=== PATIENT | female | born 1945 ===

== ENCOUNTER 2024-03-14 08:04 | Outpatient (CLI) | payer OTHER ==
[~2024-03-14 08:04] MED LIST: AMOX-CLAV 875-1 EACH PO; ASA81 MG; DICLOFENAC SODI50 MG PO; DOLOGESIC 500-1 EACH PO; GEMFIBROZIL600 MG PO; INTESTINEX680 M1 PO; LOPRESSOR25 MG; NORVASC5 MG; ZANAFLEX2 MG PO; ZANTAC150 M3 PO
[2024-03-14 08:56] LABS: URINE APPEARANCE Clear; URINE BILIRRUBIN Negative (NEGATIVE); URINE BLOOD Negative; URINE COLOR Yellow; URINE GLUCOSE Negative (NEGATIVE); URINE LEUKOCYTE Negative; URINE NITRATE Negative; URINE PROTEIN Negative (NEGATIVE); URINE UROBILINOGEN 0.2 E.U./dl
[2024-03-14 08:57] LABS: URINE BACTERIA 31.4 uL (0.0-1933); URINE EPITHELIAL CELLS 9.5 uL (0.0-38.8); URINE RBC 4.5 uL (0.0-20.8)
[2024-03-14 08:58] LABS: URINE WBC 1.5 uL (0.0-23.2)
[2024-03-14 09:10] LABS: HEMATOCRIT 43.7 % (36.0-45.00); HEMOGLOBIN 14.6 g/dL (12.0-15.00); MEAN CELL VOLUME 89.7 fL (80.00-100.00); MEAN CORPUSCULAR HEMOGLOBIN 30.1 pg (27.00-32.0); MEAN CORPUSCULAR HGB CONC 33.5 g/dl (32.0-36.0); PLATELET COUNT 286 K/uL (150-450); RED BLOOD COUNT 4.87 M/uL (4.00-6.00); RED CELL DISTRIBUTION WIDTH 14.2 % (11.5-14.5)
[2024-03-14 09:43] LABS: ALBUMIN 3.8 gm/dL (3.4-5.0); BILIRUBIN TOTAL 0.87 mg/dL (0.3-1.2); CALCIUM 9.1 mg/dL (8.5-10.1); CHOL HDL RATIO 3.6 (0-5.0); CREATININE SERUM 0.64 mg/dL (0.55-1.02); GFR 89.74; GLOBULINA 3.4 G/DL (2.4-3.5); POTASSIUM 3.33 mEq/L (3.5-5.1); T4 TOTAL 9.24 UG/DL (4.8-13.9); TOTAL PROTEIN 7.2 gm/dL (6.4-8.2); TSH 2.33 uIU/mL (0.358-3.74)
[2024-03-17 17:09] LABS: APOLIPOPROTEINA A1 189 mg/dL (116-209); APOLIPOPROTEINA B 116 mg/dL (<90)
== END 2024-03-14 08:06 | disposition home or self-care (01) ==
LOC: LAB 08:04
PROVIDERS: ATTEND Internal Medicine Cardiovascular Disease
DX: E78.2 Mixed hyperlipidemia (principal); E03.9 Hypothyroidism, unspecified; E11.9 Type 2 diabetes mellitus without complications; I10 Essential (primary) hypertension; N39.0 Urinary tract infection, site not specified

== ENCOUNTER 2024-03-28 08:15 | Outpatient (CLI) | payer OTHER | END 2024-03-28 08:23 | disposition home or self-care (01) | LOC: RAD 08:15 | PROVIDERS: ATTEND Physical Medicine & Rehabilitation | DX: M54.51 Vertebrogenic low back pain (principal); M76.01 Gluteal tendinitis, right hip; M76.02 Gluteal tendinitis, left hip ==

== ENCOUNTER → 2024-04-04 09:11 | Outpatient (CLI) | payer OTHER | END | disposition home or self-care (01) | LOC: NUCLEAR 09:00 | PROVIDERS: ATTEND Internal Medicine Cardiovascular Disease | DX: I73.9 Peripheral vascular disease, unspecified (principal) ==

== ENCOUNTER → 2024-04-05 09:25 | Outpatient (CLI) | payer OTHER | END | disposition home or self-care (01) | LOC: NUCLEAR 04-03 09:00 | PROVIDERS: ATTEND Internal Medicine Cardiovascular Disease | DX: I73.9 Peripheral vascular disease, unspecified (principal); I87.2 Venous insufficiency (chronic) (peripheral) ==

== ENCOUNTER → 2024-04-12 15:19 | Outpatient (CLI) | payer OTHER ==
[2024-04-12 16:22] LABS: HEMATOCRIT 43.1 % (36.0-45.00); HEMOGLOBIN 14.6 g/dL (12.0-15.00); MEAN CELL VOLUME 90.1 fL (80.00-100.00); MEAN CORPUSCULAR HEMOGLOBIN 30.5 pg (27.00-32.0); MEAN CORPUSCULAR HGB CONC 33.9 g/dl (32.0-36.0); PLATELET COUNT 284 K/uL (150-450); RED BLOOD COUNT 4.79 M/uL (4.00-6.00); RED CELL DISTRIBUTION WIDTH 14.2 % (11.5-14.5)
[2024-04-12 16:27] LABS: URINE APPEARANCE Turbid; URINE BILIRRUBIN Small (NEGATIVE); URINE BLOOD Large; URINE COLOR Orange; URINE GLUCOSE Negative (NEGATIVE); URINE KETONE Negative (NEGATIVE); URINE LEUKOCYTE Large; URINE NITRATE Positive
[2024-04-12 16:28] LABS: URINE BACTERIA 3270.7 uL (0.0-1933); URINE EPITHELIAL CELLS 17.3 uL (0.0-38.8); URINE RBC 240.9 uL (0.0-20.8); URINE WBC 4097.7 uL (0.0-23.2)
[2024-04-12 16:38] LABS: URINE PROTEIN 100 (NEGATIVE)
== END | disposition home or self-care (01) ==
LOC: LAB 15:19
PROVIDERS: ATTEND Obstetrics & Gynecology
DX: N39.0 Urinary tract infection, site not specified (principal)

== ENCOUNTER → 2024-04-18 10:20 | Outpatient (CLI) | payer OTHER | END | disposition home or self-care (01) | LOC: NUCLEAR 10:20 | PROVIDERS: ATTEND Obstetrics & Gynecology | DX: M81.0 Age-related osteoporosis without current pathological fracture (principal) ==

== ENCOUNTER 2024-04-18 13:48 | Outpatient (CLI) | payer OTHER | END 2024-04-18 13:49 | disposition home or self-care (01) | LOC: MAMO-SONO 13:48 | PROVIDERS: ATTEND Obstetrics & Gynecology | DX: N60.11 Diffuse cystic mastopathy of right breast (principal); N60.12 Diffuse cystic mastopathy of left breast; Z12.31 Encounter for screening mammogram for malignant neoplasm of breast ==

== ENCOUNTER → 2024-09-27 09:45 | Outpatient (CLI) | payer OTHER | END | disposition home or self-care (01) | LOC: NUCLEAR 09:45 | PROVIDERS: ATTEND Internal Medicine Cardiovascular Disease | DX: I73.9 Peripheral vascular disease, unspecified (principal) ==

== ENCOUNTER → 2024-10-11 07:44 | Outpatient (CLI) | payer OTHER ==
[2024-10-11 08:40] LABS: HEMATOCRIT 45.6 % (36.0-45.00); HEMOGLOBIN 15.4 g/dL (12.0-15.00); MEAN CELL VOLUME 90.2 fL (80.00-100.00); MEAN CORPUSCULAR HEMOGLOBIN 30.5 pg (27.00-32.0); MEAN CORPUSCULAR HGB CONC 33.9 g/dl (32.0-36.0); PLATELET COUNT 262 K/uL (150-450); RED BLOOD COUNT 5.06 M/uL (4.00-6.00); RED CELL DISTRIBUTION WIDTH 14.9 % (11.5-14.5)
[2024-10-11 09:06] LABS: URINE APPEARANCE Cloudy; URINE BILIRRUBIN Negative (NEGATIVE); URINE BLOOD Negative; URINE COLOR Yellow; URINE GLUCOSE Negative (NEGATIVE); URINE KETONE Negative (NEGATIVE); URINE LEUKOCYTE Small; URINE NITRATE Negative; URINE PROTEIN Negative (NEGATIVE); URINE UROBILINOGEN 0.2 E.U./dl
[2024-10-11 09:07] LABS: URINE EPITHELIAL CELLS 16.4 uL (0.0-38.8); URINE RBC 2.2 uL (0.0-20.8); URINE WBC 90.8 uL (0.0-23.2)
[2024-10-11 09:10] LABS: URINE BACTERIA > 9821.5 uL (0.0-1933)
[2024-10-11 09:53] LABS: ALBUMIN 3.7 gm/dL (3.4-5.0); BILIRUBIN TOTAL 0.96 mg/dL (0.3-1.2); CALCIUM 8.9 mg/dL (8.5-10.1); CHOL HDL RATIO 3.5 (0-5.0); CREATININE SERUM 0.67 mg/dL (0.55-1.02); GFR 84.9; GLOBULINA 3.2 G/DL (2.4-3.5); POTASSIUM 4.65 mEq/L (3.5-5.1); T4 TOTAL 8.6 UG/DL (4.8-13.9); TOTAL PROTEIN 6.9 gm/dL (6.4-8.2); TSH 1.9 uIU/mL (0.358-3.74)
[2024-10-11 10:12] LABS: T3 TOTAL 0.832 ng/ml (0.846-2.02); VITAMIN D3 25 HYDROXY 46.13 ng/ml (30-120)
[2024-10-11 13:19] LABS: ob POSITIVE (NEGATIVE)
== END | disposition home or self-care (01) ==
LOC: LAB 07:44
PROVIDERS: ATTEND Internal Medicine Cardiovascular Disease
DX: E11.9 Type 2 diabetes mellitus without complications (principal); E03.9 Hypothyroidism, unspecified; E78.2 Mixed hyperlipidemia; I10 Essential (primary) hypertension; D64.0 Hereditary sideroblastic anemia; Z12.11 Encounter for screening for malignant neoplasm of colon; E55.9 Vitamin D deficiency, unspecified; M81.0 Age-related osteoporosis without current pathological fracture; N39.0 Urinary tract infection, site not specified

== ENCOUNTER 2025-02-13 07:39 | Outpatient (CLI) | payer OTHER ==
[2025-02-13 08:17] LABS: EOS # 0.24 (0.04-0.54); HEMATOCRIT 43.6 % (34.1-44.9); HEMOGLOBIN 14.5 g/dL (11.2-15.7); LYMPH # 1.83 (1.18-3.74); LYMPH % 30.5 % (19.3-53.1); MEAN CORPUSCULAR HEMOGLOBIN 29.6 pg (25.6-32.2); MONO # 0.42 (0.24-0.82); NEUT # 3.44 (1.56-6.13); NEUT % 57.3 % (34.0-71.1); PLATELET COUNT 339 K/uL (163-369); RED CELL DISTRIBUTION WIDTH 13.9 % (11.6-14.4)
[2025-02-13 08:29] LABS: PH,URINE 7.5 (5.0-8.0); URINE APPEARANCE Clear; URINE BILIRRUBIN Negative (NEGATIVE); URINE BLOOD Negative; URINE COLOR Yellow; URINE GLUCOSE Negative (NEGATIVE); URINE KETONE Negative (NEGATIVE); URINE LEUKOCYTE Moderate; URINE NITRATE Negative; URINE PROTEIN Negative (NEGATIVE); URINE UROBILINOGEN 0.2 E.U./dl
[2025-02-13 08:30] LABS: URINE BACTERIA 80.7 uL (0.0-1933); URINE EPITHELIAL CELLS 15.1 uL (0.0-38.8); URINE RBC 4.7 uL (0.0-20.8); URINE WBC 21.4 uL (0.0-23.2)
[2025-02-13 08:56] LABS: URINE CAST 0.14 uL (0.0-1.40)
[2025-02-13 09:27] LABS: ALBUMIN 3.7 gm/dL (3.4-5.0); BILIRUBIN TOTAL 0.86 mg/dL (0.3-1.2); CALCIUM 9.2 mg/dL (8.5-10.1); CREATININE SERUM 0.66 mg/dL (0.55-1.02); GFR 86.39; GLOBULINA 3.2 G/DL (2.4-3.5); POTASSIUM 4.08 mEq/L (3.5-5.1); T4 TOTAL 7.48 UG/DL (4.8-13.9); TOTAL PROTEIN 6.9 gm/dL (6.4-8.2); TSH 1.83 uIU/mL (0.358-3.74)
[2025-02-13 09:28] LABS: CHOL HDL RATIO 4.3 (0-5.0)
== END 2025-02-13 07:46 | disposition home or self-care (01) ==
LOC: LAB 07:39
PROVIDERS: ATTEND Internal Medicine Cardiovascular Disease
DX: I10 Essential (primary) hypertension (principal); E11.9 Type 2 diabetes mellitus without complications; E03.9 Hypothyroidism, unspecified; E78.2 Mixed hyperlipidemia; N39.0 Urinary tract infection, site not specified

== ENCOUNTER 2025-04-28 08:35 | Outpatient (CLI) | payer OTHER ==
[~2025-04-28 08:35] MED LIST changes: +NORFLEX100MG PO
== END 2025-04-28 08:44 | disposition home or self-care (01) ==
LOC: MAMO-SONO 08:35
PROVIDERS: ATTEND Obstetrics & Gynecology
DX: N60.11 Diffuse cystic mastopathy of right breast (principal); N60.12 Diffuse cystic mastopathy of left breast; Z12.31 Encounter for screening mammogram for malignant neoplasm of breast

== ENCOUNTER → 2025-05-03 09:05 | Outpatient (CLI) | payer OTHER ==
[2025-05-03 09:41] LABS: BASO % 0.8 % (0.1-1.2); EOS # 0.17 (0.04-0.54); EOS % 3.5 % (0.7-7.0); LYMPH # 1.49 (1.18-3.74); LYMPH % 30.3 % (19.3-53.1); MEAN PLATELET VOLUME 10.50 fl (9.4-12.4); MONO # 0.34 (0.24-0.82); MONO % 6.9 % (4.7-12.5); NEUT # 2.87 (1.56-6.13); NEUT % 58.3 % (34.0-71.1); RED CELL DISTRIBUTION WIDTH 13.5 % (11.6-14.4)
[2025-05-03 10:22] LABS: ALT/SGPT 23.0 U/L (12-78); AST/SGOT 18.0 U/L (15-37); BILIRUBIN TOTAL 0.89 mg/dL (0.3-1.2); BUN CREA RATIO 28.0 (7.0-25.0); CHOL HDL RATIO 3.1 (0-5.0); CREATININE SERUM 0.69 mg/dL (0.55-1.02); GFR 82.07; GLOBULINA 3.2 G/DL (2.4-3.5); GLUCOSE FASTING 112.0 mg/dL (65-100); HDL 70.0 mg/dl (40-60); LDL 123.0 mg/dl (0-130); OSMOLALITY SERUM 288.0 MOSM/KG (275-295); T4 TOTAL 8.68 UG/DL (4.8-13.9); TSH 1.33 uIU/mL (0.358-3.74); VLDL 25.0 (0-39)
[2025-05-03 11:12] LABS: URINE APPEARANCE Clear; URINE BILIRRUBIN Negative (NEGATIVE); URINE BLOOD Negative; URINE COLOR Yellow; URINE GLUCOSE Negative (NEGATIVE); URINE KETONE Negative (NEGATIVE); URINE LEUKOCYTE Small; URINE NITRATE Negative; URINE PROTEIN Negative (NEGATIVE); URINE UROBILINOGEN 0.2 E.U./dl
[2025-05-03 11:16] LABS: URINE BACTERIA 64.7 uL (0.0-1933); URINE EPITHELIAL CELLS 32.2 uL (0.0-38.8); URINE RBC 2.0 uL (0.0-20.8); URINE WBC 15.6 uL (0.0-23.2)
[2025-05-03 11:21] LABS: URINE CAST 0.00 uL (0.0-1.40)
== END | disposition home or self-care (01) ==
LOC: LAB 09:05
PROVIDERS: ATTEND Internal Medicine Cardiovascular Disease
DX: E03.9 Hypothyroidism, unspecified (principal); E78.2 Mixed hyperlipidemia; I10 Essential (primary) hypertension; N39.0 Urinary tract infection, site not specified; R73.03 Prediabetes

== ENCOUNTER 2025-05-07 10:30 | Outpatient (CLI) | payer OTHER | END 2025-05-07 10:35 | disposition home or self-care (01) | LOC: TOM 10:30 | DX: I67.1 Cerebral aneurysm, nonruptured (principal); R51.9 Headache, unspecified ==